=== PATIENT | female | born 1965 | race African-American/Black ===

== ENCOUNTER 2023-07-06 02:11 | Emergency (ER) | payer BC, OTHER ==
[~2023-07-06] VITALS: Ht 180.3 cm; Wt 73.0 kg
[2023-07-06 02:12] VITALS: O2SAT 97
[2023-07-06 04:04] LABS: BASOPHILS % 1.5 % (0.0-2.0); EOSINOPHILS % 1.8 % (0.0-5.0); HEMATOCRIT. 42.9 % (36.0-48.0); HEMOGLOBIN. 13.9 g/dL (12.0-16.0); MEAN CORPUSCULAR HEMOGLOBIN 28.5 pg (28.0-32.0); MEAN CORPUSCULAR HGB CONC 32.4 g/dL (31.0-37.0); MEAN CORPUSCULAR VOLUME 87.9 fL (81.0-99.0); MEAN PLATELET VOLUME 8.7 fl (7.4-10.4); MONOCYTES % 5.6 % (2.0-8.0); NEUTROPHILS % 57.1 % (40.0-76.0); PLATELET 195 x1000/uL (130-400); RED BLOOD CELL COUNT 4.88 mill/uL (4.2-5.4); RED CELL DISTRIBUTION WIDTH 19.3 % (11.6-14.6); WHITE BLOOD COUNT 5.3 x1000/uL (4.5-11.0)
[2023-07-06 04:09] LABS: CHLORIDE 96 mEq/L (98-107); POTASSIUM 5.4 mEq/L (3.5-5.1); SODIUM 133 mEq/L (136-145)
[2023-07-06 04:10] LABS: CARBON DIOXIDE 26 mEq/L (21-32)
[2023-07-06 04:11] LABS: CALCIUM 10.9 mg/dL (8.7-10.4)
[2023-07-06 04:15] LABS: GLUCOSE 93 mg/dL (70-105)
[2023-07-06 04:16] LABS: UREA NITROGEN BLOOD 40 mg/dL (9-23)
[2023-07-06 04:18] LABS: TROPONIN I HIGH SENSITIVITY 13 ng/L (3.0-34)
[2023-07-06 04:20] LABS: PARTIAL THROMBOPLASTIN TIME 26.8 sec (23.4-31.0); PROTHROMBIN TIME 11.2 sec (9.6-11.0)
[2023-07-06 04:45] LABS: CREATININE 7.2 mg/dL (0.6-1.0)
[2023-07-06 06:20] VITALS: BP 139/81; PULSE 71; RESP 18; TEMP 98.7
[2023-07-06 06:53] LABS: TROPONIN I HIGH SENSITIVITY 34 ng/L (3.0-34)
== END 2023-07-06 07:25 | disposition home or self-care (01) ==
LOC: ER 02:11
DX: R07.9 Chest pain, unspecified (principal); F41.9 Anxiety disorder, unspecified; E87.5 Hyperkalemia; I12.0 Hypertensive chronic kidney disease with stage 5 chronic kidney disease or end stage renal disease; N18.6 End stage renal disease; Z99.2 Dependence on renal dialysis; Z86.73 Personal history of transient ischemic attack (TIA), and cerebral infarction without residual deficits
CPT/HCPCS: 36415; 71045; 80048; 83880; 84484; 85025; 93005; 99285